=== PATIENT | female | born 1995 | race Caucasian/White ===

== ENCOUNTER 2016-11-21 01:31 | Emergency (ER) | payer OTHER ==
--- NOTE | 2016-11-21 02:00 | ED Physician Documentation ---
PD HPI FEMALE - Stated complaint Stated Complaint: ABDOMINAL PAIN - Chief complaint Chief Complaint: Abd Pain - History obtained from History obtained from: Patient - History of Present Illness Timing - onset: How many days ago (3) Timing - details: Gradual onset Pain level max: 6 Pain level max: 1 Associated symptoms: Pelvic pain, Vaginal bleeding Contributing factors: No: Recently seen: Not recently seen - Additional information Additional information: patient had depo shot 1.5 weeks ago, began having daily vaginal bleeding a few days later, becoming heavier and associated with suprapubic cramping 3 days ago and then clots of blood tonight. Review of Systems Constitutional: denies: Fever, Chills, Sweats Cardiac: reports: Reviewed and negative Respiratory: reports: Reviewed and negative GI: denies: Abdominal Pain, Nausea, Vomiting : reports: Vaginal bleeding. denies: Dysuria, Frequency, Now EGA PD PAST MEDICAL HISTORY - Past Medical History Past Medical History: Yes Neuro: Headache/migraine Psych: Depression, Anxiety - Past Surgical History Past Surgical History: Yes - Present Medications Home Medications: Ambulatory Orders Medication Instructions Recorded Confirmed Rizatriptan Benzoate [Maxalt] 11/21/16 Sertraline HCl [Zoloft] 100 mg PO 11/21/16 - Social History Does the pt smoke?: No Smoking Status: Never smoker Does the pt drink ETOH?: No Does the pt have substance abuse?: No - Immunizations Immunizations are current?: Yes - POLST Patient has POLST: No PD ED PE NORMAL - Vitals Vital signs reviewed: Yes - General General: Alert and oriented X 3, No acute distress, Well developed/nourished - Cardiac Cardiac: RRR, No murmur - Respiratory Respiratory: No respiratory distress, Clear bilaterally - Abdomen Abdomen: Normal bowel sounds, Soft, Non tender, Non distended - Back Back: No CVA TTP - Derm Derm: Normal color, Warm and dry PD ED PE EXPANDED - Female Female : Normal external, Vaginal Bleeding (small amount dark blood with single quarter-sized clot. 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 No: Tissue present Results - Vitals Vitals: Vital Signs - 24 hr 11/21/16 11/21/16 11/21/16 01:37 02:00 03:05 Temperature 36.5 C Heart Rate 94 92 91 Respiratory 18 Rate Blood Pressure 150/90 H 133/80 H 123/77 O2 Saturation 100 98 11/21/16 04:51 Temperature Heart Rate 88 Respiratory 16 Rate Blood Pressure 129/86 H O2 Saturation 98 Oxygen O2 Source Room air - Labs Labs: Laboratory Tests 11/21/16 11/21/16 11/21/16 01:55 01:55 01:55 WBC 12.7 H RBC 4.52 Hgb 14.3 Hct 41.7 MCV 92.3 MCH 31.7 H MCHC 34.3 RDW 12.5 Plt Count 257 MPV 9.9 Neut # 9.6 H Lymph # 2.1 [place] # 0.7 Eos # 0.1 Baso # 0.1 Absolute Nucleated RBC 0.00 Nucleated RBCs 0.0 Sodium 139 Potassium 2.9 L Chloride 107 Carbon Dioxide 21 Anion Gap 11.0 BUN 12 Creatinine 1.0 Estimated GFR (MDRD) 71 L Glucose 115 H Calcium 8.8 HCG, Quant < 0.60 PD MEDICAL DECISION MAKING - ED course Complexity details: considered differential, d/w patient Departure - Departure Disposition: Home, Self Care Clinical Impression: Vaginal bleeding Condition: Good Instructions: ED Bleed Irregular Vaginal Follow-Up: JUSTIN Fishman [Provider Group] Discharge Date/Time: 11/21/16 04:52
[2016-11-21 02:15] LABS: CALCIUM 8.8 mg/dL (8.5-10.3); POTASSIUM 2.9 mmol/L (3.5-5.0)
[2016-11-21 02:17] LABS: BASOPHILS # (AUTO) 0.1 10^3/uL (0.0-0.1); BASOPHILS % (AUTO) 0.7 %; EOSINOPHILS # (AUTO) 0.1 10^3/uL (0.0-0.7); EOSINOPHILS % (AUTO) 0.6 %; HCT - HEMATOCRIT 41.7 % (37.0-47.0); HGB - HEMOGLOBIN 14.3 g/dL (12.0-16.0); LYMPHOCYTES # (AUTO) 2.1 10^3/uL (1.5-3.5); LYMPHOCYTES % (AUTO) 16.9 %; MEAN CORPUSCULAR HEMOGLOBIN 31.7 pg (27.0-31.0); MEAN CORPUSCULAR HGB CONC 34.3 g/dL (32.0-36.0); MEAN CORPUSCULAR VOLUME 92.3 fL (81.0-99.0); MEAN PLATELET VOLUME 9.9 fL (7.9-10.8); MONOCYTES # (AUTO) 0.7 10^3/uL (0.0-1.0); MONOCYTES % (AUTO) 5.7 %; NEUTROPHILS # (AUTO) 9.6 10^3/uL (1.5-6.6); NEUTROPHILS % (AUTO) 76.1 %; RED BLOOD COUNT 4.52 10^6/uL (4.20-5.40); RED CELL DISTRIBUTION WIDTH 12.5 % (12.0-15.0); UNCORRECTED WHITE BLOOD COUNT 12.7 x10^3/uL; WHITE BLOOD COUNT 12.7 x10^3/uL (4.8-10.8)
[2016-11-21] MEDS ORDERED: HYDROcod/ACET 5/325 Prepack 6 PO STA (04:36)
[2016-11-21] MEDS ORDERED: HYDROcod/ACET 5/325 Prepack 6 PO ONE (04:41)
[2016-11-21 04:52] VITALS: BP 129/86
== END 2016-11-21 04:52 | disposition home or self-care (01) ==
LOC: ED 01:31
DX: N93.9 Abnormal uterine and vaginal bleeding, unspecified (principal)
CPT/HCPCS: 36415; 80048; 84702; 85025; 99283; 99284

== ENCOUNTER 2017-04-08 19:02 | Emergency (ER) | payer OTHER ==
--- NOTE | 2017-04-08 20:10 | ED Physician Documentation ---
PD HPI HEADACHE - Stated complaint Stated Complaint: THOMPSON/VOMITING - Chief complaint Chief Complaint: Neuro - History obtained from History obtained from: Patient - History of Present Illness Timing - onset: Enter time (15:00) Timing - duration: Hours Timing - details: Gradual onset, Constant, Waxing and waning Pain level now: 8 Worst headache ever?: No: Worst headache ever? Location: Right Quality: Throbbing Associated symptoms: Nausea, Vomiting. No: Fever, Stiff neck, Weakness, Numbness Improved by: Dark room Worsened by: Light Similar symptoms before: Diagnosis (migraine headache) Recently seen: Not recently seen - Additional information Additional information: c/o right-sided headache since 3 PM today c/w previous migraine headaches. She does not recall last time she (if ever) that she went to an ED for headache, so she is not familiar with which medications help when she has a migraine headache except for what she has prescribed at home. She has maxalt, but when she took a dose of this, she vomited it up. Review of Systems Constitutional: denies: Fever Eyes: reports: Photophobia GI: reports: Nausea, Vomiting. denies: Abdominal Pain Neurologic: reports: Headache. denies: Focal weakness, Numbness PD PAST MEDICAL HISTORY - Past Medical History Past Medical History: Yes Neuro: Headache/migraine Psych: Depression, Anxiety, Schizophrenia - Past Surgical History Past Surgical History: Yes - Present Medications Home Medications: Ambulatory Orders Medication Instructions Recorded Confirmed Rizatriptan Benzoate [Maxalt] 11/21/16 Sertraline HCl [Zoloft] 50 mg PO DAILY 11/21/16 04/08/17 Cyclobenzaprine [Flexeril] 10 mg ORAL BID 04/08/17 04/08/17 Adin 300 mg ORAL DAILY 04/08/17 04/08/17 Mirtazapine 15 mg ORAL DAILY 04/08/17 04/08/17 Olanzapine [Zyprexa] 20 mg ORAL DAILY 04/08/17 04/08/17 Ondansetron Odt [Zofran] 4 mg TL Q6H PRN #14 tablet 04/08/17 Sumatriptan Succinate [Imitrex] 6 mg SQ ONCE PRN #20 pen.[email or web address] 04/08/17 - Allergies Allergies/Adverse Reactions: Allergies Allergy/AdvReac Type Severity Reaction Status Date / Time No Known Drug Allergies Allergy Verified 04/08/17 19:28 - Social History Does the pt smoke?: No Smoking Status: Current every day smoker Does the pt drink ETOH?: No Does the pt have substance abuse?: No - Immunizations Immunizations are current?: Yes - POLST Patient has POLST: No PD ED PE NORMAL - Vitals Vital signs reviewed: Yes - General General: Alert and oriented X 3, No acute distress, Well developed/nourished - HEENT HEENT: PERRL, EOMI, Other (mild photophobia) - Neck Neck: Supple, no meningeal sign - Cardiac Cardiac: RRR, No murmur - Respiratory Respiratory: No respiratory distress, Clear bilaterally - Neuro Neuro: Alert and oriented X 3, 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, Normal speech Results - Vitals Vitals: Vital Signs - 24 hr 04/08/17 04/08/17 19:27 21:12 Temperature 36.6 C 36.2 C L Heart Rate 107 H 81 Respiratory 18 16 Rate Blood Pressure 127/91 H 120/93 H O2 Saturation 98 100 Oxygen O2 Source Room air PD MEDICAL DECISION MAKING - ED course Complexity details: reviewed old records, re-evaluated patient, considered differential, d/w patient Departure - Departure Disposition: 01 Home, Self Care Clinical Impression: Migraine Condition: Good Instructions: ED Headache Migraine Follow-Up: JACE NINA [Primary Care Provider] - Prescriptions: Ondansetron Odt [Zofran] 4 mg TL Q6H PRN #14 tablet PRN Reason: Nausea / Vomiting Sumatriptan Succinate [Imitrex] 6 mg SQ ONCE PRN #20 pen.injctr PRN Reason: Migraine Discharge Date/Time: 04/08/17 21:54
[2017-04-08] MEDS ORDERED: KETOROLAC 60 MG/2 ML VIAL IM STA (20:21)
[2017-04-08] MEDS ORDERED: ONDANSETRON ODT 4 MG TABLET TL STA (20:21)
[2017-04-08] MEDS ORDERED: SUMAtriptan 6 MG/0.5 ML VIAL SUBQ STA (20:22)
[2017-04-08] MEDS ORDERED: SUMAtriptan 6 MG/0.5 ML VIAL SUBQ ONE (20:51)
[2017-04-08] MEDS ORDERED: KETOROLAC 60 MG/2 ML VIAL ONE (20:51)
[2017-04-08] MEDS ORDERED: ONDANSETRON ODT 4 MG TABLET ONE (20:51)
[2017-04-08] MEDS ORDERED: SODIUM CHLORIDE FLUSH 0.9% 10 ML SYRINGE IVP ONE (21:09)
[2017-04-08 21:15] VITALS: BP 120/93
== END 2017-04-08 21:54 | disposition home or self-care (01) ==
LOC: ED 19:02
DX: G43.909 Migraine, unspecified, not intractable, without status migrainosus (principal); F17.200 Nicotine dependence, unspecified, uncomplicated
CPT/HCPCS: 96372; 99283; Q0162